=== PATIENT | male | born 1970 | race Caucasian/White ===

== ENCOUNTER 2018-03-04 10:34 | Emergency (ER) | payer OTHER, SELFPAY ==
[2018-03-04 10:35] VITALS: BP 155/75; PULSE 78; RESP 16; TEMP 36.6; O2SAT 99; BMI 24.3
--- NOTE | 2018-03-04 11:04 | ED.VISSUMM ---
- ER Visit Summary Date of Service: 03/04/18 Chief Complaint: [] Constipation sense of pressure in the rectum for about a week History of Present Illness: The patient is a 47 M [] has no past medical history other than a prior DVTs been very stable works as a professor at the [employer], indicates that basically he had a diet changes he was traveling and since then he has noticed that is harder and harder for him to push the stool out of his rectum he has a constant since he has to have a bowel movement he was seen in urgent care center started on laxatives that did not help he is passing gas per rectum, he has had no vomiting, he has no history of abdominal surgeries bowel obstructions, urinary habits are normal and no other complaints Physical Examination: [] 155/80 General, no distress resting comfortably HEENT is generally unremarkable The neck is supple no adenopathy Cardiovascular, regular rate and rhythm Lungs, clear bilateral Abdomen, soft nontender Exam shows an obvious soft fecal impaction was digitally disimpacted without difficulty, there is no blood no masses no lesions Extremities, no clubbing cyanosis or edema Neurologic, awake alert answering questions appropriately moving all 4 extremities Test Results: [] Emergency Department Course and Treatment: [] In all the above to the patient he is a professor at the [employer] he clearly understands the above I explained to him at this point time I believe he would been from a soapsuds enema I explained I did not believe he would benefit from any additional ED workup as he has been feeling fine otherwise he has no history of but that he does require a likely follow-up with his outpatient providers to be considered for a colonoscopy as an outpatient he agrees Treatment Plan: [] Patient received soapsuds enema he had large production of stool on reevaluation abdomen soft he is nontender he is working on some paperwork he agrees to the above plan to follow-up with his primary care physicians outpatient providers consider colonoscopy high-fiber diet and return for change in symptoms Disposition: [] Home stable Impression: [] Fecal impaction status post digital disimpaction and soapsuds enema This note was generated with EpicPledgeation software. It may contain incorrect words, spelling, and punctuation that were not noted in review of the chart prior to signing ED Disposition - Plan for ED Patient: Chief Complaint: Constipation
--- NOTE | 2018-03-04 12:27 | ED.DEP ---
ED Disposition - Plan for ED Patient: Chief Complaint: Constipation Instructions: ED Impaction Fecal Treated Referrals: Yared Arciniega MD [Primary Care Provider] -
== END 2018-03-04 12:31 | disposition home or self-care (01) ==
PROVIDERS: Emergency Provider Emergency Medicine; Family Provider Internal Medicine; PCP Internal Medicine
DX: K56.41 Fecal impaction (principal)
CPT/HCPCS: 99284